=== PATIENT | female | born 1965 | race African-American/Black ===

== ENCOUNTER → 2016-09-15 | Outpatient (CLI) | payer OTHER | END | disposition home or self-care (01) | LOC: US 13:45 | PROC: B44HZZZ Ultrasonography of Bilateral Lower Extremity Arteries (ICD-10-PCS; principal; 2016-09-15) | DX: M79.604 Pain in right leg (principal); M79.605 Pain in left leg ==

== ENCOUNTER → 2016-10-25 | Outpatient (CLI) | payer OTHER | END | disposition home or self-care (01) | LOC: RD 08:36 | DX: M21.371 Foot drop, right foot (principal) ==

== ENCOUNTER → 2016-11-26 | Outpatient (CLI) | payer OTHER ==
[2016-11-26 11:10] LABS: BASOPHIL % 0.2 % (0-2); PLATELET COUNT 327 x10^3mcL (130-400); RED CELL DISTRIBUTION WIDTH 13.2 % (11.5-14.5)
[2016-11-26 11:18] LABS: rbc morphology (normal/abnorm) ABNORMAL (NORMAL)
[2016-11-26 11:25] LABS: ALKALINE PHOSPHATASE 68 U/L (46-116); ALT/SGPT 34 U/L (14-59); AST/SGOT 22 U/L (15-37); BILIRUBIN TOTAL 0.4 mg/dL (0.20-1.00); CALCIUM 9.2 mg/dL (8.5-10.1); CARBON DIOXIDE 29.2 mmol/L (21-32); CHLORIDE SERUM 105 mmol/L (98-107); CREATININE SERUM 0.5 mg/dL (0.6-1.0); GFR1 > 60 mL/min; GLUCOSE SERUM 85 mg/dL (74-106); HDL CHOLESTEROL 43 mg/dL (40-60); POTASSIUM SERUM 3.9 mmol/L (3.5-5.1); SODIUM SERUM 138 mmol/L (136-145); TRIGLYCERIDES 58 mg/dL (<150)
[2016-11-26 11:28] LABS: CHOLESTEROL 125 mg/dL (<200); CHOLESTEROL/HDL RATIO 2.9; TOTAL PROTEIN, SERUM 8.3 g/dL (6.4-8.2)
[2016-11-26 11:31] LABS: T3 TOTAL 2.03 ng/mL
[2016-11-26 11:35] LABS: FREE T4 2.66 ng/dL (0.76-1.46)
[2016-11-26 11:36] LABS: FREE THYROXINE INDEX 6.8 ug/dL (1.4-4.5); T4(THYROXINE) 16.3 ug/dL (4.7-13.3)
== END | disposition home or self-care (01) ==
LOC: LB 10:00
PROVIDERS: Family Medicine
DX: Z86.39 Personal history of other endocrine, nutritional and metabolic disease (principal); E66.01 Morbid (severe) obesity due to excess calories
CPT/HCPCS: 84439

== ENCOUNTER → 2017-01-27 | Outpatient (CLI) | payer OTHER ==
[2017-01-27 16:58] LABS: BASOPHIL % 0.1 % (0-2); PLATELET COUNT 265 x10^3mcL (130-400); RED CELL DISTRIBUTION WIDTH 13.8 % (11.5-14.5)
[2017-01-27 17:11] LABS: T4(THYROXINE) 21.1 ug/dL (4.7-13.3)
[2017-01-27 17:44] LABS: T3 TOTAL 3.95 ng/mL
== END | disposition home or self-care (01) ==
LOC: LB 16:30
PROVIDERS: Family Medicine
DX: Z86.39 Personal history of other endocrine, nutritional and metabolic disease (principal)

== ENCOUNTER 2018-02-08 09:51 | Emergency (ER) | payer OTHER ==
[~2018-02-08] VITALS: Ht 172.7 cm; Wt 111.6 kg
[2018-02-08 10:53] VITALS: BP 156/95
== END 2018-02-08 11:29 | disposition home or self-care (01) ==
LOC: ED 09:51
DX: M25.562 Pain in left knee (principal)
CPT/HCPCS: J1885

== ENCOUNTER 2018-02-10 11:02 | Emergency (ER) | payer OTHER ==
[~2018-02-10] VITALS: Ht 172.7 cm; Wt 67.6 kg
[2018-02-10 11:13] VITALS: Ht 172.7 cm; Wt 67.6 kg
[2018-02-10 12:43] VITALS: BP 161/78
== END 2018-02-10 12:43 | disposition home or self-care (01) ==
LOC: ED 11:02
DX: M25.562 Pain in left knee (principal); M17.12 Unilateral primary osteoarthritis, left knee

== ENCOUNTER → 2018-03-13 | Outpatient (CLI) | payer OTHER | END | disposition home or self-care (01) | LOC: MI 10:00 | PROC: BR39ZZZ Magnetic Resonance Imaging (MRI) of Lumbar Spine (ICD-10-PCS; principal; 2018-03-13) | PROC: BQ38ZZZ Magnetic Resonance Imaging (MRI) of Left Knee (ICD-10-PCS; 2018-03-13) | DX: M54.41 Lumbago with sciatica, right side (principal) ==

== ENCOUNTER 2018-09-18 07:41 | Emergency (ER) | payer OTHER ==
[~2018-09-18] VITALS: Ht 167.6 cm; Wt 120.4 kg
[2018-09-18 07:47] VITALS: BP 125/61; Ht 167.6 cm; Wt 120.4 kg
== END 2018-09-18 08:28 | disposition home or self-care (01) ==
LOC: ED 07:41
DX: H61.22 Impacted cerumen, left ear (principal); H92.02 Otalgia, left ear

== ENCOUNTER 2018-10-02 08:17 | Emergency (ER) | payer OTHER ==
[~2018-10-02] VITALS: Ht 172.7 cm; Wt 122.0 kg
[2018-10-02 08:20] VITALS: Ht 172.7 cm; Wt 122.0 kg
[2018-10-02 09:16] VITALS: BP 151/80
== END 2018-10-02 09:16 | disposition home or self-care (01) ==
LOC: ED 08:17
DX: J01.90 Acute sinusitis, unspecified (principal); H92.02 Otalgia, left ear; E05.90 Thyrotoxicosis, unspecified without thyrotoxic crisis or storm

== ENCOUNTER 2019-02-14 08:21 | Emergency (ER) | payer OTHER ==
[~2019-02-14] VITALS: Ht 172.7 cm; Wt 118.8 kg
[2019-02-14 08:25] VITALS: Ht 172.7 cm; Wt 118.8 kg
== END 2019-02-14 09:01 | disposition home or self-care (01) ==
LOC: ED 08:21
DX: G50.0 Trigeminal neuralgia (principal); E03.9 Hypothyroidism, unspecified